=== PATIENT | female | born 1930 | race Caucasian/White ===

== ENCOUNTER → 2017-10-11 | Outpatient (CLI) | payer MEDICARE, OTHER ==
[2017-10-11 13:27] LABS: ABG HCO3 26 mmol/L (23-28); ABG PCO2 36 mmHg (41-51); ABG PH 7.47 (7.31-7.41); ABG PO2 99 mmHg (80-105)
== END ==
LOC: LAB 11:25
PROVIDERS: ATTEND Internal Medicine Pulmonary Disease
DX: R06.00 Dyspnea, unspecified (principal)
CPT/HCPCS: 36415; 82805